=== PATIENT | male | born 1950 | race Caucasian/White ===

== ENCOUNTER → 2016-02-28 | Outpatient (CLI) | payer BC ==
[~2016-02-28] MED LIST: ADVIN10/60 INH; ASPEC81 PO; CLOP1TAB15 PO; FLNIN NAE; HYDR12.56 PO; LEVO25TA PO; LOSA100T65 PO; NIAC1TAB59 PO; OMEG-54 PO; PRT/40 PO; PRVC/20 PO; WLC625 PO; ZTA10 PO
--- NOTE | 2016-02-28 10:51 | DIAGNOSTIC IMAGING REPORT ---
LUMBAR SPINE 5 VIEWS CLINICAL HISTORY: Chronic low back pain. FINDINGS: 5 views of lumbar spine are compared to study dated 01/16/2014. The skeletal structures are osteopenic. There is no radiographic evidence of fracture or malalignment. Vertebral body height and alignment are maintained throughout the lumbar spine. Small anterior osteophytes are seen throughout. The transverse and spinous processes appear intact. There is no evidence of spondylolysis. Mild facet arthropathy is seen in the lower lumbar region. There is mild to moderate degenerative disc space narrowing seen at L3-L4 and L5-S1. Mild narrowing is present at L2-L3 and L5 -S1. The bony pelvis is intact as visualized. Mild sclerotic change is identified in the sacroiliac joints. There is mild atherosclerotic calcification of the abdominal aorta. A nonobstructed abdominal bowel gas pattern is noted. There is moderate colonic fecal retention. IMPRESSION: 1. No acute bony abnormality is seen involving the lumbosacral spine. 2. Mild lumbosacral spondylosis as above. Electronically signed by: Tariq Alexander M.D. 02/28/2016 10:50 AM Dictated Date/Time: 02/28/2016 10:44 AM
== END | disposition home or self-care (01) ==
LOC: C.RDSM 02-27 10:00
PROVIDERS: ATTEND Internal Medicine
DX: M54.5 Low back pain (principal)

== ENCOUNTER → 2016-05-02 | Outpatient (CLI) | payer BC ==
[2016-05-02 11:02] LABS: BASO % 0.7 %; BASO ABS # 0.04 K/uL (0-0.2); COMPLETE YES; EOS % 3.4 %; HEMATOCRIT 44.5 % (42-52); LYMPH % 21.7 %; MEAN CELL VOLUME 85.1 fL (80-100); MEAN CORPUSCULAR HGB CONC 35.3 g/dl (32-36); MEAN PLATELET VOLUME 9.3 fL (7.4-10.4); MONO % 13.4 %; NEUT % 60.8 %; PLATELET COUNT 256 K/uL (130-400); RED BLOOD COUNT 5.23 M/uL (4.7-6.1); WHITE BLOOD COUNT 5.54 K/uL (4.8-10.8)
[2016-05-02 11:06] LABS: ALT/SGPT 39 U/L (12-78); AST/SGOT 29 U/L (15-37); BLOOD UREA NITROGEN 15 mg/dl (7-18); BUN/CREATININE RATIO 13.4 (10-20); CALCIUM 9.2 mg/dl (8.5-10.1); CARBON DIOXIDE 28 mmol/L (21-32); CHLORIDE 107 mmol/L (98-107); CHOLESTEROL 134 mg/dl (0-200); GLUCOSE 92 mg/dl (70-99); POTASSIUM 3.9 mmol/L (3.5-5.1); SODIUM 140 mmol/L (136-145); TRIGLYCERIDES 73 mg/dl (0-150); VERY LOW DENSITY LIPOPROT CALC 15 mg/dl
[2016-05-02 11:08] LABS: ALB/GLOB RATIO 1.4 (0.9-2); ALKALINE PHOSPHATASE 72 U/L (45-117); CHOLESTEROL/HDL RATIO 2.7; HDL CHOLESTEROL 49 mg/dl; LDL CHOLESTEROL CALCULATED 70 mg/dl
== END | disposition home or self-care (01) ==
LOC: C.LABBC 07:42
PROVIDERS: ATTEND Internal Medicine Cardiovascular Disease
DX: E55.9 Vitamin D deficiency, unspecified (principal); I10 Essential (primary) hypertension; E78.4 Other hyperlipidemia

== ENCOUNTER → 2016-07-23 | Outpatient (CLI) | payer BC ==
[~2016-07-23] MED LIST changes: +PANT40TA2 PO; -PRT/40 PO
== END | disposition home or self-care (01) ==
LOC: C.LABBC 15:30
PROVIDERS: ATTEND Internal Medicine
DX: Z11.59 Encounter for screening for other viral diseases (principal); N40.0 Benign prostatic hyperplasia without lower urinary tract symptoms

== ENCOUNTER → 2016-09-23 | Outpatient (CLI) | payer BC ==
[~2016-09-23] MED LIST changes: -PANT40TA2 PO; +PRT/40 PO
--- NOTE | 2016-09-23 15:05 | DIAGNOSTIC IMAGING REPORT ---
CERVICAL SPINE 4 OR 5 VIEWS HISTORY: 66 years-old Male acute neck pain with history of remote C5 fracture per patient history. No reported injury. COMPARISON: Chest radiograph 06/30/2013 TECHNIQUE: 5 radiographic views of the soft tissues of the neck. FINDINGS: There is mild prominence of the prevertebral soft tissues at the level of C6 measuring up to 1.6 cm in AP dimension. Focus of air within this region is likely within the proximal esophagus. No radiopaque foreign body is seen. There is moderate intervertebral disc space narrowing at C4-C5, C5-C6 and C6-C7. Mild to moderate intervertebral disc space narrowing is seen at C7-T1. Multilevel mild to moderate facet arthropathy is noted with uncovertebral spurring. These changes result in at least moderate right-sided foraminal narrowing bilaterally at C5-C6, C6-C7 and C7-T1. The lung apices appear clear. IMPRESSION: 1. No acute fracture or dislocation of the cervical spine. 2. Moderate intervertebral disc space narrowing at C4-C5, C5-C6 and C6-C7 with associated facet arthropathy and uncovertebral spurring results in bilateral neuroforaminal narrowing at these levels. 3. Mild prominence of the prevertebral soft tissues at C6 measuring up to 1.6 cm may be secondary to phase of swallowing. If there is concern for infectious process, CT soft tissue neck with contrast could be considered. The above report was generated using voice recognition software. It may contain grammatical, syntax or spelling errors. Electronically signed by: Kane Ovalle M.D. 09/23/2016 3:04 PM Dictated Date/Time: 09/23/2016 2:59 PM
== END | disposition home or self-care (01) ==
LOC: C.RDSM 14:45
PROVIDERS: ATTEND Internal Medicine
DX: M54.2 Cervicalgia (principal)